=== PATIENT | male | born 1955 | race Caucasian/White ===

== ENCOUNTER → 2021-05-09 14:17 | Outpatient (BNVA) | payer MEDICARE, SELFPAY | PROVIDERS: Family Provider Family Medicine; PCP Family Medicine; Referring Provider Family Medicine; Visit Provider Specialist | DX: G56.12 Other lesions of median nerve, left upper limb (principal) | CPT/HCPCS: 95908 ==

== ENCOUNTER → 2021-06-15 08:22 | Outpatient (BNVA) | payer MEDICARE, OTHER, SELFPAY | PROVIDERS: Family Provider Family Medicine; PCP Family Medicine; Referring Provider Family Medicine; Visit Provider Specialist | DX: G56.12 Other lesions of median nerve, left upper limb (principal) | CPT/HCPCS: 73110 ==

== ENCOUNTER → 2021-09-08 08:18 | Outpatient (BNVA) | payer MEDICARE, SELFPAY | PROVIDERS: Family Provider Family Medicine; PCP Family Medicine; Referring Provider Specialist; Visit Provider Specialist | DX: M79.602 Pain in left arm (principal); R20.0 Anesthesia of skin | CPT/HCPCS: 95860; 99202 ==

== ENCOUNTER 2022-04-23 11:56 | Observation (INO) | payer MEDICARE, SELFPAY ==
[2022-04-23] VITALS (8 sets, daily range): BP systolic 77–130; BP diastolic 50–87; PULSE 45–60; RESP 12–18; TEMP 36.3–36.7; O2SAT 93–96; BMI 27.8
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
--- NOTE | 2022-04-23 12:51 | XRR_ITS ---
PROCEDURE INFORMATION: Exam: XR Thoracic Spine Exam date and time: 04/23/2022 1:05 PM Age: 67 years old Clinical indication: Pain in thoracic spine; Additional info: Worsening back pain TECHNIQUE: Imaging protocol: Radiologic exam of the thoracic spine. Views: 3 views. COMPARISON: CR XR chest 2V* [id number] 06/23/2017 11:12 AM FINDINGS: Bones/joints: Several likely chronic compression deformities throughout the spine without retropulsion of bony fragments. Mild multilevel productive degenerative endplate changes throughout the spine with multilevel mild disc space narrowing. Soft tissues: Unremarkable. XR/XR thoracic spine 3V* [id number] IMPRESSION: 1. Several likely chronic compression deformities throughout the spine without retropulsion of bony fragments. 2. Mild multilevel productive degenerative endplate changes throughout the spine with multilevel mild disc space narrowing.
--- NOTE | 2022-04-23 12:51 | XRR_ITS ---
PROCEDURE INFORMATION: Exam: XR Lumbosacral Spine Exam date and time: 04/23/2022 1:05 PM Age: 67 years old Clinical indication: Low back pain; Additional info: Worsening back pain TECHNIQUE: Imaging protocol: Radiologic exam of the lumbosacral spine. Views: 2 or 3 views. COMPARISON: No relevant prior studies available. FINDINGS: Bones/joints: Grade 1 anterolisthesis of L4 relative to L5 of 5.2 mm. Multilevel mild productive degenerative endplate changes throughout the spine. Diffuse decreased bone mineral density. Soft tissues: Unremarkable. Vasculature: Scattered vascular calcifications. XR/XR lumbar spine 2-3V* [id number] IMPRESSION: 1. Grade 1 anterolisthesis of L4 relative to L5 of 5.2 mm. 2. Multilevel mild productive degenerative endplate changes throughout the spine. 3. Diffuse decreased bone mineral density. 4. Scattered vascular calcifications.
[2022-04-23] MEDS: sodium chloride 0.9% 1,000 ML 999 ML IV ×2 (12:58→14:40)
[2022-04-23 13:05] LABS: Basophils # 0.1 10^3/uL (0.0-0.1); Basophils % 1.5 %; Eosinophils # 0.4 10^3/uL (0.0-0.8); Hematocrit 45.9 % (42.0-52.0); Hemoglobin 15.7 g/dL (11.7-16.6); Lymphocytes # 2.3 10^3/uL (0.8-4.8); Mean Corpuscular HGB Conc 34.2 g/dL (30.0-36.0); Mean Corpuscular Hemoglobin 29.2 pg (28.0-34.0); Mean Corpuscular Volume 85.5 fl (80-94); Mean Platelet Volume 10.3 fL (7.4-10.4); Monocytes # 0.6 10^3/uL (0.2-0.9); Monocytes % 8.1 %; Neutrophils # 3.92 10^3/uL (1.8-7.7); Neutrophils % 54.1 %; Nucleated Red Blood Cells % 0 %; Platelet Count 177 10^3/cmm (130-400); Red Blood Count 5.37 10^6/uL (4.1-5.3); Red Cell Distribution Width 12.2 % (12.1-15.1); White Blood Count 7.3 10^3/uL (4.0-10.0)
[2022-04-23 13:18] LABS: Alanine Aminotransferase 53 U/L (0-41); Albumin Level 4.5 g/dL (3.5-5.2); Alkaline Phosphatase 58 U/L (40-130); Anion Gap 16.4 (5-19); Aspartate Amino Transferase 33 U/L (0-40); Blood Urea Nitrogen 18 mg/dL (8-23); Calcium 9.1 mg/dL (8.5-10.5); Carbon Dioxide 22 mmol/L (22-29); Chloride 95 mmol/L (98-107); Globulin 2.3 g/dL (1.3-4.6); Glomerular Filtration Rate 50.5 mL/min (90-130); Glucose 154 mg/dL (65-115); Osmolality Calculated 273 mOsm/kg (285-295); Potassium 4.4 mmol/L (3.5-5.1); Sodium 129 mmol/L (136-145); Total Bilirubin 0.4 mg/dL (0.15-1.2); Total Protein 6.8 g/dL (6.6-8.7)
[2022-04-23] MEDS: ketorolac 30 mg/mL INJ IVP (14:14)
--- NOTE | 2022-04-23 14:52 | ECG_ITS ---
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 Measurements Intervals [place] Rate: 43 P: 48 UT: 192 QRS: -11 QRSD: 98 T: 11 QT: 501 QTc: 426 Interpretive Statements SINUS BRADYCARDIA WITH SINUS ARRHYTHMIA LOW QRS VOLTAGE IN PRECORDIAL LEADS [QRS DEFLECTION < 1.0 mV IN CHEST LEADS] POSSIBLE RIGHT VENTRICULAR CONDUCTION DELAY [RSR (QR) IN V1/V2] MODERATE VOLTAGE CRITERIA FOR LVH, CONSIDER NORMAL VARIANT [MEETS CRITERIA IN ONE OF: R(aVL), S(V1), R(V5), R(V5/V6)+S(V1)] Compared to ECG 04/23/2022 12:42:37 No significant changes Electronically Signed On 04-24-2022 20:52:37 HIP HOP DANCE INSTRUCTOR by Kina Mckinnon M.D. [id number]
--- NOTE | 2022-04-23 16:41 | PC.NURSE ---
1630 patient arrived from ER to room 254-2 patient awake and alert in stable condition
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
--- NOTE | 2022-04-23 16:50 | USR_ITS ---
PROCEDURE INFORMATION: Exam: US Retroperitoneal; Complete; Kidneys and Bladder Exam date and time: 04/23/2022 7:26 PM Age: 67 years old Clinical indication: Abnormal findings; Abnormal lab test; Abnormal kidney function lab tests; Additional info: [place] TECHNIQUE: Imaging protocol: Real-time ultrasound of the retroperitoneum with image documentation. Complete exam focused on the kidneys and bladder. COMPARISON: CR (PELVIS, ) 04/23/2022 1:05 PM FINDINGS: Liver: The partially assessed liver is echogenic. Right kidney: No solid renal mass or hydronephrosis is identified. The right kidney is normal size.. Left kidney: No solid renal mass or hydronephrosis is identified. The left kidney is normal size. Urinary bladder: Unremarkable. Prostate: The prostate is large with a 94 cc volume. US/US renal BI* [id number] IMPRESSION: 1. Unremarkable kidneys and bladder. 2. Partially assessed hepatic steatosis. 3. The prostate is large with a 94 cc volume.
--- NOTE | 2022-04-23 17:01 | ECG_ITS ---
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 Measurements Intervals [place] Rate: 53 P: 51 MN: 166 QRS: -15 QRSD: 93 T: 52 QT: 421 QTc: 397 Interpretive Statements SINUS BRADYCARDIA LOW QRS VOLTAGE IN PRECORDIAL LEADS [QRS DEFLECTION < 1.0 mV IN CHEST LEADS] POSSIBLE RIGHT VENTRICULAR CONDUCTION DELAY [RSR (QR) IN V1/V2] Compared to ECG 06/23/2017 10:34:20 Low QRS voltage now present Electronically Signed On 04-24-2022 22:29:25 TAPE FASTENER MACHINE OPERATOR by Kina Mckinnon M.D. [id number]
--- NOTE | 2022-04-23 17:06 | ECG_ITS ---
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 Measurements Intervals [place] Rate: 54 P: 57 VA: 161 QRS: -15 QRSD: 92 T: 50 QT: 445 QTc: 425 Interpretive Statements SINUS BRADYCARDIA POSSIBLE RIGHT VENTRICULAR CONDUCTION DELAY [RSR (QR) IN V1/V2] INTERPRETATION BASED ON A DEFAULT AGE OF 40 YEARS Compared to ECG 04/23/2022 14:52:23 Sinus arrhythmia no longer present Electronically Signed On 04-24-2022 22:24:50 HOT TOP LINER HELPER by Kina Mckinnon M.D. [id number]
[2022-04-23 18:13] LABS: Troponin(5th) Baseline 9 ng/L (0-15)
[2022-04-23 18:20] LABS: Creatine Phosphokinase 52 U/L (39-308); Magnesium 1.9 mg/dL (1.7-2.3); Thyroid Stimulating Hormone 1.34 uIU/mL (0.27-4.20)
[2022-04-23 20:54] LABS: Troponin 5 2HR 8.21 ng/L (0-15)
[2022-04-23] MEDS: CLONazepam 0.5 mg Tablet PO (21:31)
[2022-04-23] MEDS: acetaminophen 325 mg Tablet 650 MG PO (21:31)
[2022-04-23] MEDS: atorvastatin 40 mg Tablet 20 MG PO (21:31)
[2022-04-23 21:33] LABS: Troponin 5 2HR Delta -0.79 ABS# (0-10)
--- NOTE | 2022-04-23 21:57 | PC.NURSE ---
Nurse auscultated patient's anterior lungs and noted high pitched, inspiratory sounds. Lower lobes clear. Intermittent, non-productive cough present. Patient stated he was not short of breath or having any discomfort. Saturations on room air in 90s. Patient ambulated in hallway and tolerated activity well.
[2022-04-23 23:43] LABS: Troponin 5 6HR 21.21 ng/L (0-15)
[2022-04-23 23:52] LABS: Troponin 5 6HR Delta 12.21 ng/L (0-12)
[2022-04-24] VITALS: BP 120/75; PULSE 55; RESP 16; TEMP 36.4; O2SAT 94
--- NOTE | 2022-04-24 00:03 | PC.NURSE ---
Critical lab of a 6-hour delta troponin was reported to Dr Saba. Dr Saba asked if patient was having any chest pain, nurse reported no, however, patient had complained of back pain. Dr Saba stated that if patient develops chest pain, we will get an EKG. Nurse informed Dr Saba that if patient condition changed, she would inform him. No further orders at this time.
[2022-04-24 02:06] LABS: Basophils # 0.1 10^3/uL (0.0-0.1); Basophils % 1.8 %; Eosinophils # 0.5 10^3/uL (0.0-0.8); Eosinophils % 7.4 %; Hematocrit 41.5 % (42.0-52.0); Hemoglobin 14.3 g/dL (11.7-16.6); Lymphocytes # 2.3 10^3/uL (0.8-4.8); Lymphocytes % 37.1 %; Mean Corpuscular HGB Conc 34.5 g/dL (30.0-36.0); Mean Corpuscular Hemoglobin 29.9 pg (28.0-34.0); Mean Corpuscular Volume 86.6 fl (80-94); Mean Platelet Volume 10.3 fL (7.4-10.4); Monocytes # 0.6 10^3/uL (0.2-0.9); Monocytes % 9.7 %; Neutrophils # 2.65 10^3/uL (1.8-7.7); Neutrophils % 43.8 %; Nucleated Red Blood Cells % 0 %; Platelet Count 148 10^3/cmm (130-400); Red Blood Count 4.79 10^6/uL (4.1-5.3); Red Cell Distribution Width 12.4 % (12.1-15.1); White Blood Count 6.1 10^3/uL (4.0-10.0)
[2022-04-24 02:37] LABS: Alanine Aminotransferase 43 U/L (0-41); Albumin Level 4.1 g/dL (3.5-5.2); Alkaline Phosphatase 52 U/L (40-130); Anion Gap 13.9 (5-19); Aspartate Amino Transferase 25 U/L (0-40); Blood Urea Nitrogen 19 mg/dL (8-23); Calcium 8.9 mg/dL (8.5-10.5); Carbon Dioxide 22 mmol/L (22-29); Chloride 99 mmol/L (98-107); Creatinine Clr Calc Pharmacy 103.2484; Glomerular Filtration Rate 96.4 mL/min (90-130); Glucose 135 mg/dL (65-115); Osmolality Calculated 276 mOsm/kg (285-295); Potassium 3.9 mmol/L (3.5-5.1); Sodium 131 mmol/L (136-145); Total Bilirubin 0.4 mg/dL (0.15-1.2); Total Protein 6.1 g/dL (6.6-8.7)
[2022-04-24 04:00] VITALS: BP 121/79; PULSE 50; RESP 18; TEMP 36.4; O2SAT 92
--- NOTE | 2022-04-24 06:00 | USCV_ITS ---
Zachariah Low Age: 67 Gender: M : 1955 Exam Date: 04/24/2022 10:09 Ordering Phys: Pierre Caraballo MD Technologist: Sarabjit Moncada Exam Location: [facility] [place] Indication: increasted card enzimes BP: 153 / 87 HR: 67 Rhythm: Sinus Technical Quality: Adequate MEASUREMENTS (Male / Female) Normal Values 2D ECHO LV Diastolic Diameter PLAX 4.9 cm 4.2 - 5.9 / 3.9 - 5.3 cm LV Systolic Diameter PLAX 2.8 cm IVS Diastolic Thickness 1.2 cm 0.6 - 1.0 / 0.6 - 0.9 cm IVS Systolic Thickness 1.6 cm LVPW Diastolic Thickness 1.1 cm 0.6 - 1.0 / 0.6 - 0.9 cm LVPW Systolic Thickness 1.1 cm LVOT Diameter 2.0 cm LV Ejection Fraction 2D Teich 74.0 % LV Ejection Fraction MOD 2C 74.9 % LV Ejection Fraction 2C AL 74.4 % LA Diameter 3.8 cm Aorta at Sinotubular Diameter 2.3 cm M-MODE Aortic Annulus Diameter 3.7 cm LA Ao Ratio MM 1.0 MV E Point Septal Separation 1.4 cm DOPPLER AV Peak Velocity 155.0 cm/s LVOT Peak Velocity 112.0 cm/s AV Area Cont Eq vti 2.3 cm squared AV Area Cont Eq pk 2.3 cm squared MV Area PHT 5.4 cm squared Mitral E to A Ratio 1.1 MV E' Velocity 45.5 cm/s Mitral E to MV E' Ratio 6.7 Mitral E to LV E' Lateral Ratio 7.1 Mitral E to LV E' Septal Ratio 6.2 TR Peak Velocity 246.0 cm/s TR Peak Gradient 24.2 mmHg TV Peak E Velocity 97.0 cm/s Right Atrial Pressure 3.0 mmHg Pulmonary Artery Systolic Pressu 27.2 mmHg RV Acceleration Time 0.2 s FINDINGS Left Ventricle Left ventricle is normal in size. LV systolic function is normal with EF of 55 to 60%. No regional wall motion abnormalities are seen. Diastolic function is normal. Right Ventricle Normal in size and function Right Atrium Left Atrium Normal in size Mitral Valve Structurally normal mitral valve. Aortic Valve Structurally normal aortic valve. No significant aortic stenosis. Mild aortic regurgitation. Tricuspid Valve Mild tricuspid regurgitation. Pulmonary artery systolic pressure is normal. Pulmonic Valve Not well visualized Pericardium normal Aorta Normal in size IVC Not well-visualized CONCLUSIONS LV systolic function is normal with EF 55 to 60%. Diastolic function is normal. Mild aortic regurgitation Mild tricuspid regurgitation Compared to prior echocardiogram from 2017, no significant changes are seen. Rich Phillips MD (Electronically Signed) Final Date: 24 April 2022 19:04 S
[2022-04-24 08:00] VITALS: BP 150/90; PULSE 61; RESP 18; TEMP 36.6; O2SAT 97
[2022-04-24] MEDS: aspirin 325 mg Tablet PO (08:40)
[2022-04-24] MEDS: lidocaine 5% Patch 1 PATCH TOPICAL (08:40)
[2022-04-24 09:26] LABS: Troponin T (5th) Once 11 ng/L (0-15)
[2022-04-24 10:32] LABS: Iron 90 ug/dL (59-158); Percent Saturation 37.5 % (20-50); Total Iron Binding Capacity 240 mcg/dl; Unsaturated Iron Binding 150 ug/dL (112-347)
[2022-04-24 12:00] VITALS: BP 123/80; PULSE 63; RESP 18; TEMP 36.5; O2SAT 94
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
--- NOTE | 2022-04-24 17:01 | ECG_ITS ---
[facility] Test Date: 2022-04-24 Pat Name: Low Soni Department: Room: 254 Gender: Male Lna: : 1955 Requested By: Pierre Caraballo Order Number: [id number] Reading MD: Kina Mckinnon M.D. Measurements Intervals [place] Rate: 55 P: 57 ME: 151 QRS: 7 QRSD: 89 T: 68 QT: 419 QTc: 402 Interpretive Statements SINUS BRADYCARDIA POSSIBLE RIGHT VENTRICULAR CONDUCTION DELAY [RSR (QR) IN V1/V2] Compared to ECG 04/23/2022 17:58:53 No significant changes Electronically Signed On 04-24-2022 20:50:40 MEDIA RELATIONS SPECIALIST by Kina Mckinnon M.D. [id number]
[2022-04-24 17:04] VITALS: BP 123/80; PULSE 63; RESP 18; TEMP 36.5; O2SAT 94
[2022-04-24 17:38] LABS: Troponin T (5th) Once 7 ng/L (0-15)
== END 2022-04-24 17:05 | disposition home or self-care (01) ==
LOC: ER 15:29 → MEDSURG 16:04
PROVIDERS: Admitting Provider Internal Medicine; Emergency Provider Family Medicine; PCP Family Medicine; Visit Provider Internal Medicine
DX: I95.9 Hypotension, unspecified (principal); R00.1 Bradycardia, unspecified; M54.9 Dorsalgia, unspecified; N17.9 Acute kidney failure, unspecified; E87.1 Hypo-osmolality and hyponatremia; Z86.73 Personal history of transient ischemic attack (TIA), and cerebral infarction without residual deficits; K21.9 Gastro-esophageal reflux disease without esophagitis; G25.81 Restless legs syndrome; R74.01 Elevation of levels of liver transaminase levels; G89.29 Other chronic pain; Z79.891 Long term (current) use of opiate analgesic
CPT/HCPCS: 36415; 72072; 72100; 76770; 80053; 82550; 83540; 83550; 83735; 84443; 84484; 85025; 93005; 93306; 96374; 99285; G0378; J1885; J7030

== ENCOUNTER 2022-05-16 13:12 | Outpatient (CLI) | payer MEDICARE, SELFPAY ==
--- NOTE | 2022-05-16 | XR_ITS ---
WS: [id number] DEXA (DUAL ENERGY X-RAY ABSORPTIOMETRY) Bone mineral density was performed using a [employer] machine. HISTORY: OSTEOPOROSIS COMPARISON: None available. Lumbar spine BMD (L1-L4): 0.902 g/cm2 T score: -2.7 Z score: -2.6 Total hip BMD: Left: 0.961 g/cm2. T score: -1.0 Z score: -0.6 Right: 0.916 g/cm2. T score: -1.3 Z score: -0.9 10 year probability of a major osteoporotic fracture is 6.5%. XR/XR DEXA axial skeleton* 87466 IMPRESSION: OSTEOPOROSIS based upon the WHO classification for females.
== END 2022-05-16 13:13 | disposition home or self-care (01) ==
LOC: RAD 13:17
PROVIDERS: PCP Family Medicine; Visit Provider Family Medicine
DX: M81.0 Age-related osteoporosis without current pathological fracture (principal)
CPT/HCPCS: 77080

== ENCOUNTER → 2022-06-20 10:00 | Outpatient (BNVA) | payer MEDICARE, SELFPAY | PROVIDERS: PCP Family Medicine; Visit Provider Podiatrist Foot & Ankle Surgery | DX: I73.9 Peripheral vascular disease, unspecified (principal); L60.3 Nail dystrophy; L84 Corns and callosities | CPT/HCPCS: 11055; 11721; 99203 ==

== ENCOUNTER → 2022-10-03 13:01 | Outpatient (BNVA) | payer MEDICARE, SELFPAY | PROVIDERS: PCP Family Medicine; Visit Provider Podiatrist Foot & Ankle Surgery | DX: I73.9 Peripheral vascular disease, unspecified (principal); L60.3 Nail dystrophy; L84 Corns and callosities | CPT/HCPCS: 11055; 11721 ==

== ENCOUNTER → 2023-01-02 09:45 | Outpatient (BNVA) | payer MEDICARE, SELFPAY | PROVIDERS: PCP Family Medicine; Visit Provider Podiatrist Foot & Ankle Surgery | DX: I73.9 Peripheral vascular disease, unspecified (principal); L60.3 Nail dystrophy; L84 Corns and callosities | CPT/HCPCS: 11055; 11721 ==

== ENCOUNTER → 2023-04-11 07:53 | Outpatient (BNVA) | payer MEDICARE, SELFPAY | PROVIDERS: PCP Family Medicine; Visit Provider Podiatrist Foot & Ankle Surgery | DX: E11.8 Type 2 diabetes mellitus with unspecified complications (principal); I73.9 Peripheral vascular disease, unspecified; L60.3 Nail dystrophy; L84 Corns and callosities | CPT/HCPCS: 11055; 11721 ==

== ENCOUNTER → 2023-07-11 07:46 | Outpatient (BNVA) | payer MEDICARE, SELFPAY | PROVIDERS: PCP Family Medicine; Visit Provider Podiatrist Foot & Ankle Surgery | DX: I73.9 Peripheral vascular disease, unspecified (principal); L60.3 Nail dystrophy; L84 Corns and callosities; E11.42 Type 2 diabetes mellitus with diabetic polyneuropathy; Z79.84 Long term (current) use of oral hypoglycemic drugs | CPT/HCPCS: 11055; 11721 ==

== ENCOUNTER → 2023-10-09 08:41 | Outpatient (BNVA) | payer MEDICARE, SELFPAY | PROVIDERS: PCP Family Medicine; Visit Provider Podiatrist Foot & Ankle Surgery | DX: I73.9 Peripheral vascular disease, unspecified (principal); L60.3 Nail dystrophy; L84 Corns and callosities; E11.42 Type 2 diabetes mellitus with diabetic polyneuropathy; Z79.84 Long term (current) use of oral hypoglycemic drugs | CPT/HCPCS: 11055; 11721 ==

== ENCOUNTER → 2023-12-04 09:35 | Outpatient (BNVA) | payer MEDICARE, SELFPAY | PROVIDERS: PCP Family Medicine; Referring Provider Family Medicine; Visit Provider Surgery | DX: K42.9 Umbilical hernia without obstruction or gangrene (principal) | CPT/HCPCS: 99203 ==

== ENCOUNTER 2023-12-17 05:30 | Day surgery (SDC) | payer MEDICARE, SELFPAY ==
--- NOTE | 2023-12-16 08:23 | ANES.PREANE2 ---
Pre-Anesthetic Assessment Height/Weight: Height 5 ft 11 in Preop Diagnosis: Inguinal hernia Operation Date: 12/17/23 07:00 Proposed Procedures p Laparoscopic possible open Inguinal Hernia Repair with mesh 58967, 93508, K42.9, K40.90(Right) - Abhijeet Campbell MD s Umbilical Hernia Repair Open Umbilical Hernia Repair(Not Applicable) - Abhijeet Campbell MD Was Beta Neal taken within 24 hours: N/A Was Clonidine taken within 24 hours: N/A Social No alcohol and No tobacco Exam alert, oriented x 3, clear to auscultation bilaterally and regular rate & rhythm Airway Submandibular: within normal limits Cervical ROM: within normal limits Mallampati: Class III Dentition: other (Multiple missing teeth) Comments: Comments: Good mouth opening, poor tongue protrusion Anesthetic Plan Other: No prior issues with anesthesia NPO since midnight History of GERD, on Protonix Type 2 diabetes, no insulin Hypertension on lisinopril Takes clonazepam nightly at bedtime EKG 04/2022 showing sinus bradycardia. Repeat ordered Labs ordered Plan for GETA with possible postop peripheral nerve block Medications/Allergies Home Medications Medication Instructions Recorded Confirmed Last Taken Type aspirin 325 mg tablet 325 mg PO DAILY 05/09/21 12/13/23 12/12/23 History clonazepam 0.5 mg tablet 0.5 mg PO BEDTIME 05/09/21 12/13/23 12/12/23 History pantoprazole 40 mg tablet,delayed 40 mg PO DAILY PRN Heartburn 05/09/21 12/13/23 Unknown History release simvastatin 40 mg tablet 40 mg PO BEDTIME 05/09/21 12/13/23 12/12/23 History lidocaine 5 % topical patch 1 patch topical [id number] #14 ea 04/24/22 12/13/23 Unknown Rx menthol 16 % topical spray (Icy 1 spray topical BID #113 grams 04/24/22 12/13/23 Unknown Rx Hot (menthol)) pramipexole 0.125 mg tablet 0.125 mg PO QPM #90 tabs 04/24/22 12/13/23 12/12/23 Rx ropinirole 0.25 mg tablet See Rx Instructions .Route 04/24/22 12/13/23 12/12/23 Rx .COMPLEX #28 tabs lisinopril 10 mg tablet 10 mg PO DAILY 07/11/23 12/13/23 Unknown History metformin 500 mg tablet,extended 1,000 mg PO BID 07/11/23 12/13/23 12/15/23 History release 24 hr pioglitazone 30 mg tablet 30 mg PO DAILY 12/13/23 12/13/23 12/12/23 History Allergies Allergy/AdvReac Type Severity Reaction Status Date / Time shrimp Allergy Severe ADR-Gastrointestinal Verified 12/17/23 05:56 Upset [facility] Anesthesia Medical History CVA (cerebral vascular accident) Insomnia GERD (gastroesophageal reflux disease) RLS (restless legs syndrome) Back pain Surgical History (Updated 12/04/23 @ 09:[address]) H/O hernia repair Family History Father Brain cancer Social History Smoking and tobacco/nicotine status: current every day tobacco/nicotine user (cigar occasionally) Alcohol intake: never Substance/Drug Use: never Lives independently: Yes Household members: spouse Marital status: Data Anesthesia Cardiac Studies: Echocardiogram 04/24/22
[2023-12-17] VITALS (10 sets, daily range): BP systolic 117–142; BP diastolic 82–91; PULSE 57–87; RESP 16–18; TEMP 36.1–36.2; O2SAT 93–99; BMI 25.7
--- NOTE | 2023-12-17 06:25 | ECG_ITS ---
[facility] Test Date: 2023-12-17 Pat Name: Low Soni Department: Room: Gender: Male Senior Business Consultant: : 1955 Requested By: Juni Grady Order Number: [id number] Dale MD: Rich Phillips M.D. Measurements Intervals [place] Rate: 49 P: -2 [place]: 152 QRS: -26 QRSD: 99 T: 35 QT: 450 QTc: 408 Interpretive Statements SINUS BRADYCARDIA BORDERLINE LEFT AXIS DEVIATION [QRS AXIS < -20] POSSIBLE RIGHT VENTRICULAR CONDUCTION DELAY [RSR (QR) IN V1/V2] POSSIBLE LEFT VENTRICULAR HYPERTROPHY [VOLTAGE CRITERIA PLUS LAE OR QRS WIDENING] Compared to ECG 04/24/2022 08:14:01 No significant changes Electronically Signed On 12-17-2023 18:55:34 CDT by Rich Phillips M.D. [id number]
[2023-12-17 06:29] LABS: Glucose Point of Care 138 mg/dL (70-110)
[2023-12-17] MEDS: sodium chloride 0.9% 1,000 ML 30 ML IV (06:32)
--- NOTE | 2023-12-17 06:38 | P.HPUD_ITS ---
Surgery/Procedure H&P Update DATE OF PROCEDURE: December 17, 2023 DATE H&P PERFORMED: 12/04/23 H&P UPDATE INFORMATION: I have reviewed H&P completed within last 30 days, I have examined patient prior to procedure, No changes to prior documentation and H&P is in [facility] [place] EMR on date indicated PREOP DIAGNOSIS: Inguinal hernia PLANNED PROCEDURE: Operation Date: 12/17/23 07:00 Proposed Procedures p Laparoscopic possible open Inguinal Hernia Repair with mesh 28983, 15181, K42.9, K40.90(Right) - Abhijeet Campbell MD s Umbilical Hernia Repair Open Umbilical Hernia Repair(Not Applicable) - Abhijeet Campbell MD
[2023-12-17 07:21] LABS: Basophils # 0.1 10^3/uL (0.0-0.1); Basophils % 1.6 %; Eosinophils # 0.4 10^3/uL (0.0-0.8); Eosinophils % 6.6 %; Hematocrit 46.3 % (37-53); Lymphocytes # 1.5 10^3/uL (0.8-4.8); Mean Corpuscular HGB Conc 34.3 g/dL (30-55); Mean Corpuscular Hemoglobin 29.8 pg (27-33); Mean Corpuscular Volume 86.7 fl (82-101); Mean Platelet Volume 9.9 fL (7.4-10.4); Monocytes # 0.5 10^3/uL (0.2-0.9); Monocytes % 9.5 %; Neutrophils # 2.94 10^3/uL (1.8-7.7); Neutrophils % 53.9 %; Nucleated Red Blood Cells % 0 %; Platelet Count 147 10^3/cmm (157-399); Red Blood Count 5.34 10^6/uL (3.85-5.65); Red Cell Distribution Width 13.1 % (12.1-15.1); White Blood Count 5.46 10^3/uL (3.29-11.43)
[2023-12-17 07:45] LABS: Anion Gap 14.1 (5-19); Blood Urea Nitrogen 13 mg/dL (8-23); Calcium 9.1 mg/dL (8.5-10.5); Carbon Dioxide 23 mmol/L (22-29); Chloride 105 mmol/L (98-107); Creatinine Clr Calc Pharmacy 98.4325; Glucose 149 mg/dL (65-115); Osmolality Calculated 289 mOsm/kg (285-295); Potassium 4.1 mmol/L (3.5-5.1); Sodium 138 mmol/L (136-145)
[2023-12-17] MEDS: ceFAZolin 2,000 mg SDV 2000 MG IVP (07:49)
[2023-12-17] MEDS: lidocaine-epi 1% 20 mL INJ INJECTION (09:56)
[2023-12-17] MEDS: BUPivacaine 0.25% INJ 10 mL INJECTION (09:56)
--- NOTE | 2023-12-17 10:20 | ANES.PROC ---
Anesthesia Procedures Procedure/Date: 12/17/23 Nerve Block ^: Nerve Block 1: Main Anesthesia: general anesthesia Time Out Performed: Yes Consent: requested by attending/covering physician and from patient Nerve block location: other (R tap block) Anesthesia monitors applied: pulse oximetry, EKG, BP cuff and oxygen Nerve block position: supine Anesthetic Used: other (ropivicaine 0.2%) Amount of anesthesia used (mL): 30 Ultrasound used to: recognize landmarks Nerve Stimulator Used?: No Interscalene/Femoral BLK: other needle (pjunk) Injection: neg aspiration of heme Patient Tolerated Procedure: well Complications: none Nerve Block 2: Main Anesthesia: general anesthesia Time Out Performed: Yes Consent: requested by attending/covering physician and from patient Nerve block location: other (R rectus Sheath block) Anesthesia monitors applied: pulse oximetry, EKG, BP cuff and oxygen Nerve block position: supine Anesthetic Used: other (Ropivicaine 0.2%) Amount of anesthesia used (mL): 20 Ultrasound used to: recognize landmarks Nerve Stimulator Used?: No Interscalene/Femoral BLK: other needle (pjunk) and visualize local anesthetic spread Injection: neg aspiration of heme Patient Tolerated Procedure: well Complications: none
--- NOTE | 2023-12-17 10:32 | PM.OP ---
Operative Report Date of procedure: December 17, 2023 Pre-op diagnosis: Right inguinal hernia, Umbilical hernia Post-op diagnosis: same Post-op findings: There was a large direct right inguinal hernia with severe scarring of the sac to the anterior abdominal wall. There was a indirect component with the medium size lipoma of the cord. Umbilical hernia was very small measuring less than 1 cm. There was a small area of weakness on the fascia above the umbilicus, no evidence of hernia at this level. Procedure done: Laparoscopic right inguinal hernia repair with mesh, open umbilical hernia repair primary Implants: Extra-large 3D max mesh right side Specimens removed/disposition: None Surgeon: Abhijeet Campbell MD Machine Chain Maker: HANS OR STaff Estimated blood loss: 10 Brief History: 60-year-old male with right inguinal hernia and umbilical hernia who presented for repair. After discussion we will resume benefits as documented my preop note we decided to proceed. Procedure: Patient was brought into the OR, he was placed in a supine position. General anesthesia was given. Whitmore catheter was inserted. The abdomen was prepped and draped in usual sterile fashion. Timeout was conducted. I then proceeded to make a 1.5 cm infraumbilical incision, the incision was deepened to subcutaneous tissue down to the level of the anterior rectus sheath fascia, once the fascia was identified this was opened with electrocautery. The right rectus muscle was retracted laterally exposing the retrorectus space, Spacemaker was advanced carefully to the level of the pubic bone. The Spacemaker was inflated and direct visualization, it was immediately apparent that there was a large right direct inguinal hernia. The Spacemaker was then removed and replaced with a 2 mm balloon trocar. Additional 5 mm trocars were placed under direct visualization the suprapubic and infraumbilical locations after insufflation was achieved. I then proceeded to bluntly dissect the preperitoneal space, once I was able to visualize the pubic bone I then placed my attention on the large direct hernia, the hernia was tender to the anterior abdominal wall and replacing large part of the anterior abdominal wall, I was able to carefully pull down the hernia after complete reduction a large defect was noted. I then placed my attention on the lateral aspect I proceeded to develop the lateral space of Gunner. I then proceeded to dissect the cord structures, large cord lipoma was reduced, no evidence of a peritoneal component was noted at this level. Unfortunately during the dissection a small peritoneal hole was made, the hole was closed with clips. A critical view of the myopectineal orifice was achieved. An extra-large right-sided mesh was placed in the preperitoneal space and fixed medially to the oblique bone using secure strap. I then proceeded to desufflate the properitoneal space and ordered visualization, after desufflation I waited for about a minute and then reinsufflated, the position of the mesh was noted to be adequate covering the direct indirect and femoral spaces and providing adequate lateral coverage. I proceeded to desufflate and the radial visualization. After that the trocars were removed. The fascia at the level of the anterior rectus sheath was closed with #0 Vicryl. At this point I placed my attention to the umbilical hernia, the infraumbilical incision was extended about 1 more centimeter. The incision was deepened to the level of the fascia, I then used a Bee clamp to go around the umbilical stalk. I carefully transected the umbilical stalk making sure not injury any contents of the hernia sac. Once the umbilicus was liberated the hernia was visualized and was very small less than 1 cm, I proceeded to clear the fascial edges from any weakened tissue with electrocautery. After that since the hole was too small I decided not to put the mesh and proceed with primary repair with #0 Prolene, I did this with several #0 Prolene [id number] sutures. Once the defect was completely closed no evidence of weakness was noted at this level, the immediately superior area at the level of the mid 9 appeared to be slightly weak but there was no evidence of an actual hernia, I reinforced the area by approximating the anterior rectus sheath on both sides with a #0 Vicryl. The umbilicus was then tacked to the fascia using a #3-0 Vicryl. The wounds were irrigated, the wounds were closed in layers using #3-0 Vicryl for the subcutaneous tissue #4 Monocryl for the skin. Dermabond was applied. At the end of the procedure all counts were correct, the patient tolerated well the procedure and was transferred to the PACU in stable condition
[2023-12-17] MEDS: oxyCODONE 5 mg IR Tab/Cap PO (11:28)
--- NOTE | 2023-12-17 11:55 | ANE.PACU2 ---
Inpatient post-anesthesia follow up: Airway intact: Yes Vital signs: Temperature 97 F Pulse Rate 72 Respiratory Rate 18 Blood Pressure 122/86 Pulse Oximetry 94 Oxygen Delivery Me thod Room Air Oxygen Flow Rate 8 Fraction of Inspir ed Oxygen Hydration adequate: Yes Nausea and vomiting: No Pain level: 1 Mental status: Baseline
== END 2023-12-17 11:55 | disposition home or self-care (01) ==
PROVIDERS: Student in an Organized Health Care Education/Training Program; PCP Family Medicine; Visit Provider Surgery
PROC: (CPT 49650; principal; 2023-12-17 07:00)
PROC: (CPT 49591; 2023-12-17 07:00)
DX: K40.90 Unilateral inguinal hernia, without obstruction or gangrene, not specified as recurrent (principal); K42.9 Umbilical hernia without obstruction or gangrene; K21.9 Gastro-esophageal reflux disease without esophagitis; E11.9 Type 2 diabetes mellitus without complications; I10 Essential (primary) hypertension; Z86.73 Personal history of transient ischemic attack (TIA), and cerebral infarction without residual deficits; F17.200 Nicotine dependence, unspecified, uncomplicated
CPT/HCPCS: 49591; 49650; 36415; 36416; 51702; 80048; 82962; 85025; 93005; C1781; J0690; J1100; J2405; J2704; J2710; J3010; J3490; J7030

== ENCOUNTER → 2024-01-02 07:57 | Outpatient (BNVA) | payer MEDICARE, SELFPAY | PROVIDERS: PCP Family Medicine; Visit Provider Surgery | DX: Z98.890 Other specified postprocedural states (principal); Z87.19 Personal history of other diseases of the digestive system | CPT/HCPCS: 99024 ==

== ENCOUNTER → 2024-01-08 08:12 | Outpatient (BNVA) | payer MEDICARE, SELFPAY | PROVIDERS: PCP Family Medicine; Visit Provider Podiatrist Foot & Ankle Surgery | DX: I73.9 Peripheral vascular disease, unspecified (principal); L60.3 Nail dystrophy; L84 Corns and callosities; E11.42 Type 2 diabetes mellitus with diabetic polyneuropathy; I10 Essential (primary) hypertension; Z79.84 Long term (current) use of oral hypoglycemic drugs | CPT/HCPCS: 11055; 11721 ==

== ENCOUNTER → 2024-04-07 10:30 | Outpatient (BNVA) | payer MEDICARE, SELFPAY | PROVIDERS: PCP Family Medicine; Visit Provider Podiatrist Foot & Ankle Surgery | DX: E11.8 Type 2 diabetes mellitus with unspecified complications (principal); I73.9 Peripheral vascular disease, unspecified; L60.3 Nail dystrophy; L84 Corns and callosities; E11.42 Type 2 diabetes mellitus with diabetic polyneuropathy; I10 Essential (primary) hypertension; Z79.84 Long term (current) use of oral hypoglycemic drugs | CPT/HCPCS: 11055; 11721 ==

== ENCOUNTER 2024-06-18 08:19 | Emergency (ER) | payer MEDICARE, SELFPAY ==
[2024-06-18 08:27] VITALS: BP 151/97; PULSE 66; RESP 20; TEMP 36.8; O2SAT 95
--- NOTE | 2024-06-18 08:31 | ECG_ITS ---
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
--- NOTE | 2024-06-18 08:31 | XR_ITS ---
WS: [id number] XR chest 1V portable [id number] REASON FOR EXAM: Right-sided numbness FINDINGS: The chest is relatively unchanged compared to 06/23/2017. There is moderate tortuosity and ectasia of the thoracic aorta. The heart size is normal. Calcified granulomatous disease in both hemithoraces. Overlying anterior soft tissue metallic foreign body projecting over the left midlung. No acute pulmonary parenchymal or pleural abnormality is identified. Moderate degenerative spondylosis in the thoracic spine. XR/XR chest 1V portable [id number] IMPRESSION: No acute chest abnormality.
--- NOTE | 2024-06-18 08:31 | CT_ITS ---
WS: [id number] CT HEAD NONCONTRAST HISTORY: Left maxillary swelling, rue/rle weakness x 1 week TECHNIQUE: Contiguous axial imaging performed through the brain. Bone and soft tissue windows. Sagittal and coronal reformats reviewed. All CT [facility] use at least one of these dose optimization techniques: automated exposure control; mA and/or kV adjustment per patient size (includes targeted exams where dose is matched to clinical indication); or iterative reconstruction. DLP: 1019.88 mGy.cm COMPARISON: 06/23/2017 No acute intracranial hemorrhage, midline shift or mass effect. Moderate bilateral symmetric atrophy has mildly progressed since 06/23/2017. Moderate small vessel ischemic disease. Small lacunar infarct anterior medial LEFT occipital lobe is chronic. Additional very tiny cortical infarct along the posterior inferior LEFT temporal lobe. No new infarcts. Mild cerebellar atrophy. Ventricles: Normal size with no hydrocephalus. No inferior displacement of the cerebellar tonsils. Paranasal sinuses: As visualized are clear. Mastoid air cells: Well pneumatized. Calvarium and scalp: No destructive bone lesions. Unfused ring of C1 posteriorly. Moderate carotid atherosclerosis in the cavernous sinuses. CT/CT head wo con* [id number] IMPRESSION: 1. No acute intracranial hemorrhage or edema. 2. Mild progression of cerebral and cerebellar atrophy and small vessel diseas e since 2018. No acute infarct.
--- NOTE | 2024-06-18 08:33 | ED_ITS ---
HPI - Neuro Symptoms/Deficit 2 General: Chief Complaint: Neuro Symptoms/Deficit Stated Complaint: stroke like symptoms Time Seen by Provider: 06/18/24 08:30 History of Present Illness: Patient presents to the ER with complaints of right upper and lower extremity numbness and tingling off and on x 1 week. Patient also has a left maxillary erythema and swelling, he says this is due to a bad tooth he is utero to have pulled. Patient has never had this numbness and tingling before. However he does have a chart history of a stroke. Patient does have neuropathy and restless legs. Patient has no overt focal neurologic findings at this time. Related Data Home Medications ?Medication ?Instructions ?Recorded ?Confirmed aspirin 325 mg tablet 325 mg PO DAILY 05/09/2105/13 Held on 12/17/23. Instructions: Resume on 12/21/23. clonazepam 0.5 mg tablet 0.5 mg PO BEDTIME 05/09/21 0 06/18/24 simvastatin 40 mg tablet 40 mg PO BEDTIME 05/09/21 metformin 500 mg tablet,extended See Rx Instructions . Route .COMPLEX 07/11/23 06/18/24 release 24 hr pioglitazone 30 mg tablet 30 mg PO DAILY 12/13/2305/13 alendronate 70 mg tablet 70 mg PO Q7D 06/18/24 losartan 25 mg tablet 25 mg PO DAILY 06/18/2405/13 pramipexole 0.5 mg tablet 0.5 mg PO QPM 06/18/2406/18 Previous Rx's ?Medication ?Instructions ?Recorded sulfamethoxazole 800 1 tab PO BID #14 tabs mg-trimethoprim 160 mg tablet (Bactrim DS) Allergies Allergy/AdvReac Type Severity Reaction Status Date / Time shrimp Allergy Severe ADR-Gastrointestinal Verified 04/07/24 10:34 Upset Review of Systems 2 General: Reports: 10 or more systems reviewed and unremarkable except in HPI and below PFSH ED 2 PFSH: Medical History CVA (cerebral vascular accident) Insomnia GERD (gastroesophageal reflux disease) RLS (restless legs syndrome) Back pain Surgical History Hx of umbilical hernia repair 9/30/24 Right inguinal hernia, Umbilical hernia- Dr Campbell H/O hernia repair Family History Father Brain cancer Social History Smoking and tobacco/nicotine status: never used tobacco/nicotine Alcohol intake: never Substance/Drug Use: never Lives independently: Yes Household members: spouse Marital status: NIH stroke score 2 NIHSS: Level Of Consciousness - 1a: 0 Level Of Consciousness Questions - 1b: Both Correct Level Of Consciousness Commands - 1c: Both Correct Best Gaze - 2: Normal Visual Martinez - 3: No Visual Loss Facial Palsy - 4: N ormal Motor Arm Right - 5: No Drift Motor Arm Left - 5: No Drift Motor Leg Right - 6: No Drift Motor Leg Left - 6: No Drift Limb Ataxia - 7: A bsent Sensory - 8: Normal Best Language - 9: No Aphasia Dysarthia - 10: Normal Extinction And Inattention - 11: 0 Score: Total Score: 0 Physical Exam 2 Const: COMMON NORMALS: no acute distress, average body habitus, patient oriented x3, no limitations, healthy appearing, alert and well nourished HENMT: COMMON NORMALS: normocephalic, atraumatic, hearing grossly normal bilaterally, external ears normal, EAC's normal, TM's normal bilaterally, Normal external nose present, Normal nasal mucous membranes and turbinates present, moist oral mucous membranes and oropharynx normal; dentition not normal (Very poor dentition throughout,) HEAD & SCALP: n ormocephalic and atraumatic NOSE: Normal external nose present and Normal nasal mucous membranes and turbinates present EXTERNAL EAR: Yes external ears normal EXTERNAL AUDITORY CANAL: EAC's normal TYMPANIC MEMBRANE: TM's normal bilaterally OTHER: Erythema over left maxillary sinus area tender to palpate. Eye: COMMON NORMALS: Equal, round and reactive pupils present, EOMs intact bilaterally, conjunctivae normal and no scleral icterus CONJUNCTIVA: Yes conjunctivae normal PUPIL: Yes Equal, round and reactive pupils present Neck/C-Spine: COMMON NORMALS: full ROM, no lymphadenopathy, supple, no meningeal signs, no JVD and Thyroid normal THYROID: Thyroid normal Chest: COMMONS NORMALS: normal inspection of the chest and normal palpation of entire chest wall Resp: COMMON NORMALS: normal respiratory effort, No retractions, No use of accessory muscles and clear to auscultation bilaterally AUSCULTATION: clear to auscultation bilaterally Cardio: COMMON NORMALS: no JVD, regular rate, regular rhythm, S1 normal heart sound present, S2 normal heart sound present, No gallops present (Cardio), No clicks present (Cardio), No murmurs present (Cardio) and No rub (Cardio) R ATE: regular rate RHYTHM: regular rhythm HEART SOUNDS: S1 normal heart sound present and S2 normal heart sound present GI: COMMON NORMALS: Normal to inspection, nondistended, normoactive bowel sounds present, Soft to palpation, non-tender, No hepatosplenomegaly present and no masses PALPATION: Yes Soft to palpation and Yes No hepatosplenomegaly present Extremity: COMMON NORMALS: normal to inspection, full ROM, capillary refill normal and no joint enlargement Neuro: COMMON NORMALS: patient oriented x3 SENSORIUM/ORIENTATION: Yes alert MENINGEAL SIGNS: Yes no meningeal signs Course 2 Vital Signs: Vital signs: Vital Signs Temperature 98.3 F 06/18/24 08:27 Pulse Rate 68 06/18/24 11:02 Respiratory Rate 20 H 06/18/24 08:27 Blood Pressure 158/106 06/18/24 11:02 Pulse Oximetry 96 06/18/24 11:02 Oxygen Delivery Me thod Room Air 06/18/24 11:02 MDM - Neuro Symptoms/Deficit Medical Decision Making Chest x-ray, head CT both read acute abnormality, lab work essentially unremarkable, patient does have multiple bad teeth. We will place patient on antibiotics and steroids here and he ER for IV then will discharge him on antibiotics. Patient is to follow-up with his PCP within next 7 days and keep his appointment for his extractions of his teeth Medical Records I reviewed the patient's medical records. Lab Data I reviewed the patient's lab results. 06/18/24 08:30 06/18/24 08:30 Radiology Impressions Chest X-Ray 06/18/24 08:31 IMPRESSION: No acute chest abnormality. Head CT 06/18/24 08:31 IMPRESSION: 1. No acute intracranial hemorrhage or edema. 2. Mild progression of cerebral and cerebellar atrophy and small vessel disease since 2018. No acute infarct. Laboratory Results WBC 9.11 10^3/uL (3.29-11.43) 06/18/24 08:30 RBC 5.56 10^6/uL (3.85-5.65) 06/18/24 08:30 Hgb 16.40 g/dL (11.27-16.99) 06/18/24 08:30 Hct 48.0 % (37-53) 06/18/24 08:30 MCV 86.3 fl (82-101) 06/18/24 08:30 MCH 29.5 pg (27-33) 06/18/24 08:30 MCHC 34.2 g/dL (30-55) 06/18/24 08:30 RDW 12.9 % (12.1-15.1) 06/18/24 08:30 Plt Count 156 10^3/cmm (157-399) L 06/18/24 08:30 MPV 9.5 fL (7.4-10.4) 06/18/24 08:30 Neut % (Auto) 74.9 % 06/18/24 08:30 Lymph % (Auto) 13.7 % 06/18/24 08:30 [place] % (Auto) 9.8 % 06/18/24 08:30 Eos % (Auto) 0.5 % 06/18/24 08:30 Baso % (Auto) 0.8 % 06/18/24 08:30 Neut # (Auto) 6.82 10^3/uL (1.8-7.7) 06/18/24 08:30 Lymph # (Auto) 1.3 10^3/uL (0.8-4.8) 06/18/24 08:30 [place] # (Auto) 0.9 10^3/uL (0.2-0.9) 06/18/24 08:30 Eos # (Auto) 0.1 10^3/uL (0.0-0.8) 06/18/24 08:30 Baso # (Auto) 0.1 10^3/uL (0.0-0.1) 06/18/24 08:30 Nucleated RBC % (auto) 0 % 06/18/24 08:30 Nucleated RBCs # 0.0 /100WBC 06/18/24 08:30 PT 12.80 SECONDS (12.1-14.9) 06/18/24 08:30 INR 0.90 (0.8-1.2) 06/18/24 08:30 Sodium 133 mmol/L (136-145) L 06/18/24 08:30 Potassium 4.2 mmol/L (3.5-5.1) 06/18/24 08:30 Chloride 96 mmol/L (98-107) L 06/18/24 08:30 Carbon Dioxide 24 mmol/L (22-29) 06/18/24 08:30 Anion Gap 17.2 (5-19) 06/18/24 08:30 BUN 13 mg/dL (8-23) 06/18/24 08:30 Creatinine 0.8 mg/dL (0.7-1.2) 06/18/24 08:30 GFR Calculation 95.8 mL/min (90-130) 06/18/24 08:30 Glucose 161 mg/dL (65-115) H 06/18/24 08:30 Calculated Osmolality 280 mOsm/kg (285-295) L 06/18/24 08:30 Calcium 9.9 mg/dL (8.5-10.5) 06/18/24 08:30 Magnesium 1.8 mg/dL (1.7-2.3) 06/18/24 08:30 Total Bilirubin 1.2 mg/dL (0.15-1.2) 06/18/24 08:30 AST 17 U/L (0-40) 06/18/24 08:30 ALT 33 U/L (0-41) 06/18/24 08:30 Alkaline Phosphatase 35 U/L (40-130) L 06/18/24 08:30 Troponin T Baseline 10 ng/L (0-15) 06/18/24 08:30 Troponin T 120 Minute 9.03 ng/L (0-15) 06/18/24 10:33 Delta Troponin T -0.97 ABS# (0-10) L 06/18/24 10:33 C-Reactive Protein 47.3 mg/L (0.0-4.9) H 06/18/24 08:30 Total Protein 7.8 g/dL (6.6-8.7) 06/18/24 08:30 Albumin 5.1 g/dL (3.5-5.2) 06/18/24 08:30 Globulin 2.7 g/dL (1.3-4.6) 06/18/24 08:30 TSH 1.16 uIU/mL (0.27-4.20) 06/18/24 08:30 Urine Color Yellow (Yellow) 06/18/24 10:32 Urine Appearance Clear (CLEAR) 06/18/24 10:32 Urine pH 7 (5-7) 06/18/24 10:32 Ur Specific [place] 1.015 (1.005-1.030) 06/18/24 10:32 Urine Protein Neg (Negative) 06/18/24 10:32 Urine Glucose (UA) Norm (Normal) 06/18/24 10:32 Urine Ketones 1+ (Negative) H 06/18/24 10:32 Urine Blood Neg (Negative) 06/18/24 10:32 Urine Nitrate Negative (Negative) 06/18/24 10:32 Urine Bilirubin Neg (Negative) 06/18/24 10:32 Urine Urobilinogen Norm mg/dL (Negative) 06/18/24 10:32 Ur Leukocyte Esterase Negative (Negative) 06/18/24 10:32 Amorphous Sediment Not Reportable 06/18/24 10:32 All radiology interpretation(s) finalized by discharge Discharge Plan Discharge Patient Disposition: Home Clinical Impression: Dental cavities Condition: Stable Prescriptions: New sulfamethoxazole-trimethoprim [Bactrim DS] 800-160 mg tablet 1 tab PO BID Qty: 14 0RF No Action clonazepam 0.5 mg tablet 0.5 mg PO BEDTIME Patient Comments: At bedtime simvastatin 40 mg tablet 40 mg PO BEDTIME aspirin 325 mg tablet 325 mg PO DAILY metformin 500 mg tablet extended release 24 hr See Rx Instructions .ROUTE .COMPLEX Rx Instructions: Take 1 tablet by mouth in the am and 2 tablets in the pm. pioglitazone 30 mg tablet 30 mg PO DAILY alendronate 70 mg tablet 70 mg PO Q7D pramipexole 0.5 mg tablet 0.5 mg PO QPM losartan 25 mg tablet 25 mg PO DAILY Discharge Orders: Discharge ED (Routine); Ordered 06/18/24 Ordered By: Lauro Pereira Referrals: Rico Rubin MD [Primary Care Provider] - 1 week Patient Instructions: Dental Abscess (ED) Activity Restrictions/Additional Instructions: Thank you for choosing [facility] for your healthcare needs today. Please realize that you were seen in the emergency department and that we are providing you with an emergency medical screening exam and this may not be a complete and all exclusive of all testing and/or medical workup we may need to determine your element or severity of your illness. It is very important that you follow-up as instructed with your primary care provider or specialist for the additional evaluation and to discuss your medical treatment plan. You may return to the emergency department should you have concerns or if your condition changes or worsens in any way. Print Language: Chinese Coding Level of Care Code ED River Tester for Zenia Mccann
[2024-06-18 08:46] LABS: Basophils # 0.1 10^3/uL (0.0-0.1); Basophils % 0.8 %; Eosinophils # 0.1 10^3/uL (0.0-0.8); Eosinophils % 0.5 %; Lymphocytes # 1.3 10^3/uL (0.8-4.8); Lymphocytes % 13.7 %; Mean Corpuscular HGB Conc 34.2 g/dL (30-55); Mean Corpuscular Hemoglobin 29.5 pg (27-33); Mean Corpuscular Volume 86.3 fl (82-101); Mean Platelet Volume 9.5 fL (7.4-10.4); Monocytes # 0.9 10^3/uL (0.2-0.9); Monocytes % 9.8 %; Neutrophils # 6.82 10^3/uL (1.8-7.7); Neutrophils % 74.9 %; Nucleated Red Blood Cells % 0 %; Platelet Count 156 10^3/cmm (157-399); Red Blood Count 5.56 10^6/uL (3.85-5.65); Red Cell Distribution Width 12.9 % (12.1-15.1); White Blood Count 9.11 10^3/uL (3.29-11.43)
[2024-06-18 09:02] LABS: Troponin(5th) Baseline 10 ng/L (0-15)
[2024-06-18 09:12] LABS: Alanine Aminotransferase 33 U/L (0-41); Albumin Level 5.1 g/dL (3.5-5.2); Alkaline Phosphatase 35 U/L (40-130); Anion Gap 17.2 (5-19); Aspartate Amino Transferase 17 U/L (0-40); Blood Urea Nitrogen 13 mg/dL (8-23); C Reactive Protein 47.3 mg/L (0.0-4.9); Calcium 9.9 mg/dL (8.5-10.5); Carbon Dioxide 24 mmol/L (22-29); Chloride 96 mmol/L (98-107); Creatinine Clr Calc Pharmacy 97.0654; Globulin 2.7 g/dL (1.3-4.6); Glomerular Filtration Rate 95.8 mL/min (90-130); Glucose 161 mg/dL (65-115); Magnesium 1.8 mg/dL (1.7-2.3); Osmolality Calculated 280 mOsm/kg (285-295); Potassium 4.2 mmol/L (3.5-5.1); Sodium 133 mmol/L (136-145); Thyroid Stimulating Hormone 1.16 uIU/mL (0.27-4.20); Total Bilirubin 1.2 mg/dL (0.15-1.2); Total Protein 7.8 g/dL (6.6-8.7)
--- NOTE | 2024-06-18 10:32 | ECG_ITS ---
[facility]: [facility]24[facility]18 Pat Name: Low Soni Department: Room: Gender: Male Huc: : 1955 Requested By: Lauro Pereira Order Number: [id number] Reading MD: Measurements Intervals [place] Rate: 63 P: 63 [place]: 188 QRS: -20 QRSD: 98 T: 50 QT: 419 QTc: 430 Interpretive Statements SINUS RHYTHM INCOMPLETE RIGHT BUNDLE BRANCH BLOCK [90+ ms QRS DURATION, TERMINAL R IN V1/V2, 40+ ms S IN I/aVL/V4/V5/V6] [id number] [email or web address]
[2024-06-18 10:46] LABS: Add Urine Microscopic? NO
[2024-06-18 10:53] LABS: Bilirubin Urine Neg (Negative); Blood Urine Neg (Negative); Glucose Urine UA Norm (Normal); Ketones Urine 1+ (Negative); Leukocyte Esterase Urine Negative (Negative); Nitrate Urine Negative (Negative); Protein Urine Neg (Negative); Specific Gravity, Urine 1.015 (1.005-1.030); Urine Appearance Clear (CLEAR); Urine Color Yellow (Yellow); Urobilinogen Urine Norm (Negative); pH Urine 7 (5-7)
[2024-06-18 10:54] LABS: Charge for UA Resulting for Rev
[2024-06-18 11:02] VITALS: BP 158/106; PULSE 68; O2SAT 96
[2024-06-18 11:10] LABS: Troponin 5 2HR 9.03 ng/L (0-15)
[2024-06-18 11:12] LABS: Troponin 5 2HR Delta -0.97 ABS# (0-10)
[2024-06-18] MEDS: cefTRIAXone 1,000 mg SDV 1000 MG IVP (11:58)
[2024-06-18] MEDS: methylPREDNISolone sod succ 125 mg/2 mL INJ IVP (11:58)
[2024-06-18 12:05] VITALS: BP 170/107; PULSE 67; O2SAT 94
[2024-06-18 12:16] VITALS: BP 170/107; PULSE 68; O2SAT 93
== END 2024-06-18 12:17 | disposition home or self-care (01) ==
PROVIDERS: Emergency Provider Emergency Medicine; PCP Family Medicine
DX: K02.9 Dental caries, unspecified (principal); Z79.82 Long term (current) use of aspirin; Z79.84 Long term (current) use of oral hypoglycemic drugs; Z86.73 Personal history of transient ischemic attack (TIA), and cerebral infarction without residual deficits
CPT/HCPCS: 36415; 70450; 71045; 80053; 81003; 83735; 84443; 84484; 85025; 85610; 86140; 93005; 96374; 96375; 99285; J0696; J2919

== ENCOUNTER → 2024-07-07 10:50 | Outpatient (BNVA) | payer MEDICARE, SELFPAY | PROVIDERS: PCP Family Medicine; Visit Provider Podiatrist Foot & Ankle Surgery | DX: E11.8 Type 2 diabetes mellitus with unspecified complications (principal); L60.3 Nail dystrophy; L84 Corns and callosities; I73.9 Peripheral vascular disease, unspecified; E11.42 Type 2 diabetes mellitus with diabetic polyneuropathy; Z79.84 Long term (current) use of oral hypoglycemic drugs | CPT/HCPCS: 11055; 11721 ==

== ENCOUNTER → 2024-10-06 11:02 | Outpatient (BNVA) | payer MEDICARE, SELFPAY | PROVIDERS: PCP Family Medicine; Visit Provider Podiatrist Foot & Ankle Surgery | DX: E11.42 Type 2 diabetes mellitus with diabetic polyneuropathy (principal); L60.3 Nail dystrophy; L84 Corns and callosities; E11.8 Type 2 diabetes mellitus with unspecified complications; I73.9 Peripheral vascular disease, unspecified; Z79.84 Long term (current) use of oral hypoglycemic drugs | CPT/HCPCS: 11721 ==

== ENCOUNTER → 2025-01-12 07:45 | Outpatient (BNVA) | payer MEDICARE, SELFPAY | PROVIDERS: PCP Family Medicine; Visit Provider Podiatrist Foot & Ankle Surgery | DX: E11.42 Type 2 diabetes mellitus with diabetic polyneuropathy (principal); L60.3 Nail dystrophy; E11.8 Type 2 diabetes mellitus with unspecified complications; I73.9 Peripheral vascular disease, unspecified; Z79.84 Long term (current) use of oral hypoglycemic drugs | CPT/HCPCS: 11721 ==